=== PATIENT | male | born 1940 | race Caucasian/White ===

== ENCOUNTER 2017-12-01 18:01 | Inpatient (IN) | payer OTHER ==
[2017-12-01 18:30] LABS: ADD MAN DIFF? NO
[2017-12-01 18:36] LABS: WHITE BLOOD COUNT 10.5 10^3/ul (4.8-10.8)
[2017-12-01 18:36] LABS: BASOPHILS % 0.4 % (0.0-2.0); EOSINOPHILS # 0.1 10^3/ul (0.0-0.5); EOSINOPHILS % 0.9 % (0.0-7.0); HEMATOCRIT 39.2 % (42.0-52.0); HEMOGLOBIN 13.1 g/dl (14.0-18.0); LYMPHOCYTES % 19.2 % (15.0-51.0); MEAN CORPUSCULAR HEMOGLOBIN 30.8 pg (29.0-33.0); MEAN CORPUSCULAR HGB CONC 33.4 g/dl (32.0-37.0); MEAN PLATELET VOLUME 8.9 fl (7.4-10.4); MONOCYTE # 0.8 10^3/ul (0.3-0.9); MONOCYTES % 7.3 % (0.0-11.0); NEUTROPHIL # 7.6 10^3/ul (1.6-7.5); NEUTROPHILS % 71.8 % (39.0-77.0); PLATELET COUNT 288 10^3/UL (140-415); RED BLOOD COUNT 4.26 10^6/ul (4.70-6.10)
[2017-12-01 18:54] LABS: ANION GAP 13 (8-16); BLOOD UREA NITROGEN 14 mg/dl (7-20); CALCIUM 9.5 mg/dl (8.4-10.2); CARBON DIOXIDE 26 mmol/L (21-31); CHLORIDE 104 mmol/L (97-110); CHOL/HDL RATIO 4.8 RATIO; CHOLESTEROL 195 mg/dl (100-200); CREATINE KINASE 41 IU/L (23-200); CREATININE 0.75 mg/dl (0.61-1.24); GLUCOSE 109 mg/dl (70-220); HDL CHOLESTEROL 40 mg/dl (31-75); LDL CHOLESTEROL,CALCULATED 127 mg/dl; SODIUM 139 mmol/L (135-144); TRIGLYCERIDES 140 mg/dl (0-149)
[2017-12-01] MEDS: IOHEXOL 300MG/ML 150 ML BTL (18:54)
[2017-12-01] MEDS: SOD CHLORIDE 0.9% 100 ML (18:54)
[2017-12-01 18:56] LABS: ETHANOL < 10.0 mg/dl; INR 0.89; PROTIME 12.1 Sec (11.9-14.9); PT RATIO 0.9
[2017-12-01] MEDS: SOD CHLORIDE 0.9% 500 ML IV (18:56)
[2017-12-01 18:59] LABS: HEMOGLOBIN A1C 5.5 % (0-5.9)
[2017-12-01 19:05] LABS: CK-MB 1.22 ng/ml (0.0-2.4); TROPONIN-I < 0.012 ng/ml (0.000-0.120)
[2017-12-01] MEDS ORDERED: ACETAMINOPHEN 325 MG TAB PO (20:30)
[2017-12-01] MEDS ORDERED: ONDANSETRON 4 MG INJ IV (20:30)
[2017-12-02] MEDS: ASPIRIN (EC) 81 MG TAB PO ×2 (00:59→08:51)
[2017-12-02] MEDS: ENOXAPARIN 60 MG/0.6 ML SYG SC ×2 (01:01→08:51)
[2017-12-02 01:30] LABS: TROPONIN-I < 0.012 ng/ml (0.000-0.120)
[2017-12-02 07:01] LABS: HEMATOCRIT 33.8 % (42.0-52.0); HEMOGLOBIN 11.2 g/dl (14.0-18.0); MEAN CORPUSCULAR HGB CONC 33.1 g/dl (32.0-37.0); MEAN CORPUSCULAR VOLUME 93.6 fl (82.0-101.0); MEAN PLATELET VOLUME 9.4 fl (7.4-10.4); PLATELET COUNT 256 10^3/UL (140-415); POSITIVE DIFF @See below; RED BLOOD COUNT 3.61 10^6/ul (4.70-6.10); RED CELL DISTRIBUTION WIDTH 13.9 % (11.5-14.5)
[2017-12-02 07:01] LABS: WHITE BLOOD COUNT 7.4 10^3/ul (4.8-10.8)
[2017-12-02 07:13] LABS: ADD MAN DIFF? YES
[2017-12-02 07:33] LABS: CHOLESTEROL 145 mg/dl (100-200)
[2017-12-02 07:33] LABS: CHOL/HDL RATIO 4.3 RATIO; HDL CHOLESTEROL 33 mg/dl (31-75); LDL CHOLESTEROL,CALCULATED 95 mg/dl; TRIGLYCERIDES 85 mg/dl (0-149)
[2017-12-02 07:35] LABS: ALANINE AMINOTRANSFERASE 17 IU/L (13-69); ALBUMIN 2.6 g/dl (3.3-4.9); ALBUMIN/GLOBULIN RATIO 0.86; ALKALINE PHOSPHATASE 103 IU/L (42-121); ANION GAP 8 (8-16); ASPARTATE AMINO TRANSFERASE 11 IU/L (15-46); BILIRUBIN,INDIRECT 0.3 mg/dl (0-1.1); BILIRUBIN,TOTAL 0.3 mg/dl (0.2-1.3); BLOOD UREA NITROGEN 13 mg/dl (7-20); CALCIUM 8.7 mg/dl (8.4-10.2); CARBON DIOXIDE 28 mmol/L (21-31); CHLORIDE 106 mmol/L (97-110); CREATININE 0.59 mg/dl (0.61-1.24); GLUCOSE 70 mg/dl (70-220); POTASSIUM 3.6 mmol/L (3.5-5.1); SODIUM 138 mmol/L (135-144); TOTAL PROTEIN 5.6 g/dl (6.1-8.1)
[2017-12-02 07:52] LABS: TROPONIN-I < 0.012 ng/ml (0.000-0.120)
[2017-12-02] MEDS ORDERED: PENDING SANTYL ORDER FOR WOUND CARE XX (08:00)
[2017-12-02 08:19] LABS: EOSINOPHILS % (M) 1 % (0-7); LYMPHOCYTES #M 2.3 10^3/ul (0.8-2.9); LYMPHOCYTES % (M) 32 % (15-51); MICROCYTOSIS 1+ (0-0); MONOCYTE #M 0.3 10^3/ul (0.3-0.9); MONOCYTES % (M) 5 % (0-11); PLATELET ESTIMATE NORMAL; POLYCHROMASIA 1+ (0-0); SEGMENTED NEUTROPHILS (M) % 62 % (39-77); SMUDGE%M 12 % (0-0); SPHEROCYTES 2+ (0-0)
[2017-12-02 08:31] LABS: PREALBUMIN 13.2 mg/dl (17.6-36.0)
[2017-12-02] MEDS ORDERED: ALBUTEROL/IPRATROPIUM (NEB) 3 ML AMP HHN (10:00)
[2017-12-02] MEDS: CLOPIDOGREL 75 MG TAB PO (11:05)
[2017-12-02] MEDS: FINASTERIDE 5 MG TAB PO (11:05)
[2017-12-02] MEDS: FAMOTIDINE 20 MG TAB PO (11:05)
[2017-12-02] MEDS: NICOTINE (21 MG/24 HR) PATCH TRANSDERM (11:06)
[2017-12-02] MEDS: IOHEXOL 100 ML (12:50)
[2017-12-02] MEDS: SOD CHLORIDE 0.9% 100 ML (12:50)
[2017-12-02 13:00] LABS: TROPONIN-I < 0.012 ng/ml (0.000-0.120)
[2017-12-02] MEDS: TAMSULOSIN (SR) 0.4 MG CAP PO (21:10)
[2017-12-02] MEDS: ATORVASTATIN 20 MG TAB PO (21:10)
[2017-12-03 02:00] LABS: AMPHETAMINE/METHAMPHETAMINE Negative (NEGATIVE); BARBITURATES Negative (NEGATIVE); BENZODIAZEPINES Negative (NEGATIVE); CANNABINOIDS Negative (NEGATIVE); COCAINE Negative (NEGATIVE); OPIATES Negative (NEGATIVE)
[2017-12-03 02:22] LABS: ADD UMIC YES; UR AMORPHOUS CRYSTAL FEW /HPF (NONE SEEN); UR ASCORBIC ACID NEGATIVE (NEGATIVE); UR BACTERIA FEW /HPF (NONE SEEN); UR BILIRUBIN (Dip) 2+ mg/dL (NEGATIVE); UR BLOOD (Dip) NEGATIVE (NEGATIVE); UR CLARITY CLOUDY (CLEAR); UR COLOR AMBER (YELLOW); UR GLUCOSE (Dip) NEGATIVE (NEGATIVE); UR KETONES (Dip) NEGATIVE (NEGATIVE); UR LEUKOCYTE ESTERASE (Dip) 3+ Leu/ul (NEGATIVE); UR MUCUS FEW /HPF (NONE SEEN); UR NITRITE (Dip) POSITIVE (NEGATIVE); UR RBC 8 /HPF (0-5); UR SPECIFIC GRAVITY (Dip) 1.058 (1.003-1.030); UR TOTAL PROTEIN (Dip) 2+ mg/dl (NEGATIVE); UR UROBILINOGEN (Dip) NEGATIVE (NEGATIVE); UR WBC 41 /HPF (0-5)
[2017-12-03] MEDS: FAMOTIDINE 20 MG TAB PO (08:02)
[2017-12-03] MEDS: CLOPIDOGREL 75 MG TAB PO (08:02)
[2017-12-03] MEDS: FINASTERIDE 5 MG TAB PO (08:02)
[2017-12-03] MEDS: ASPIRIN (EC) 81 MG TAB PO (08:02)
[2017-12-03] MEDS: NICOTINE (21 MG/24 HR) PATCH TRANSDERM (08:03)
== END 2017-12-03 16:40 | disposition home health service (06) | DRG 68 ==
LOC: E/R 18:01 → TEL 20:06
DX: I65.21 Occlusion and stenosis of right carotid artery (principal); I69.354 Hemiplegia and hemiparesis following cerebral infarction affecting left non-dominant side; I71.2 Thoracic aortic aneurysm, without rupture; J43.2 Centrilobular emphysema; I70.292 Other atherosclerosis of native arteries of extremities, left leg; N40.0 Benign prostatic hyperplasia without lower urinary tract symptoms; F17.210 Nicotine dependence, cigarettes, uncomplicated; R55 Syncope and collapse; Z79.02 Long term (current) use of antithrombotics/antiplatelets; Z79.82 Long term (current) use of aspirin; Z91.81 History of falling
CPT/HCPCS: 36415; 70450; 70496; 70498; 70551; 71045; 71275; 80048; 80053; 80061; 80307; 81001; 82550; 82553; 82962; 83036; 84134; 84484; 85025; 85610; 85730; 93005; 93306; 96360; 97162; 97167; 99285-25

== ENCOUNTER 2018-04-19 16:46 | Inpatient (IN) | payer OTHER ==
[2018-04-19] MEDS: morphine 4 MG/ML VIAL IV (20:39)
[2018-04-19 20:55] LABS: ADD MAN DIFF? NO
[2018-04-19] MEDS ORDERED: ACETAMINOPHEN 325 MG TAB PO ×2 (21:00→21:30)
[2018-04-19] MEDS ORDERED: ONDANSETRON 4 MG INJ IV (21:00)
[2018-04-19 21:01] LABS: BASOPHILS % 0.2 % (0.0-2.0); EOSINOPHILS # 0.1 10^3/ul (0.0-0.5); EOSINOPHILS % 0.5 % (0.0-7.0); HEMATOCRIT 33.9 % (42.0-52.0); LYMPHOCYTES # 1.3 10^3/ul (0.8-2.9); LYMPHOCYTES % 11.3 % (15.0-51.0); MEAN CORPUSCULAR HEMOGLOBIN 27.2 pg (29.0-33.0); MEAN CORPUSCULAR HGB CONC 32.4 g/dl (32.0-37.0); MEAN CORPUSCULAR VOLUME 83.9 fl (82.0-101.0); MEAN PLATELET VOLUME 9.4 fl (7.4-10.4); MONOCYTE # 0.7 10^3/ul (0.3-0.9); MONOCYTES % 6.2 % (0.0-11.0); NEUTROPHILS % 81.3 % (39.0-77.0); PLATELET COUNT 318 10^3/UL (140-415); RED BLOOD COUNT 4.04 10^6/ul (4.70-6.10); RED CELL DISTRIBUTION WIDTH 15.4 % (11.5-14.5)
[2018-04-19 21:21] LABS: ALBUMIN 3.8 g/dl (3.3-4.9); ALKALINE PHOSPHATASE 116 IU/L (42-121); ANION GAP 14 (5-13); ASPARTATE AMINO TRANSFERASE 12 IU/L (15-46); BILIRUBIN,INDIRECT 0.3 mg/dl (0-1.1); BILIRUBIN,TOTAL 0.3 mg/dl (0.2-1.3); BLOOD UREA NITROGEN 37 mg/dl (7-20); CALCIUM 9.8 mg/dl (8.4-10.2); CARBON DIOXIDE 26 mmol/L (21-31); CHLORIDE 97 mmol/L (97-110); CREATININE 1.27 mg/dl (0.61-1.24); GLUCOSE 177 mg/dl (70-220); POTASSIUM 4.3 mmol/L (3.5-5.1); SODIUM 137 mmol/L (135-144)
[2018-04-19 21:23] LABS: ALANINE AMINOTRANSFERASE < 6 IU/L (13-69)
[2018-04-19 21:26] LABS: ALBUMIN/GLOBULIN RATIO 1.11; TOTAL PROTEIN 7.2 g/dl (6.1-8.1)
[2018-04-19] MEDS ORDERED: ONDANSETRON 4 MG TAB PO (21:30)
[2018-04-19] MEDS ORDERED: NACL 0.9% 3 ML SYG IV (21:30)
[2018-04-19] MEDS ORDERED: DOCUSATE SODIUM 100 MG CAP PO (21:30)
[2018-04-19] MEDS ORDERED: KETOROLAC 15 MG INJ IV (21:30)
[2018-04-19] MEDS ORDERED: MAGNESIUM HYDROXIDE 30ML CUP PO (21:30)
[2018-04-19] MEDS: FAMOTIDINE 20 MG TAB PO (21:30)
[2018-04-20 05:19] LABS: ADD MAN DIFF? NO
[2018-04-20 05:24] LABS: WHITE BLOOD COUNT 8.6 10^3/ul (4.8-10.8)
[2018-04-20 05:24] LABS: BASOPHILS % 0.4 % (0.0-2.0); EOSINOPHILS # 0.1 10^3/ul (0.0-0.5); EOSINOPHILS % 1.6 % (0.0-7.0); HEMATOCRIT 30.4 % (42.0-52.0); HEMOGLOBIN 9.9 g/dl (14.0-18.0); LYMPHOCYTES # 1.7 10^3/ul (0.8-2.9); LYMPHOCYTES % 19.3 % (15.0-51.0); MEAN CORPUSCULAR HEMOGLOBIN 27.3 pg (29.0-33.0); MEAN CORPUSCULAR HGB CONC 32.6 g/dl (32.0-37.0); MEAN PLATELET VOLUME 9.5 fl (7.4-10.4); MONOCYTE # 0.9 10^3/ul (0.3-0.9); MONOCYTES % 10.5 % (0.0-11.0); NEUTROPHIL # 5.8 10^3/ul (1.6-7.5); NEUTROPHILS % 67.8 % (39.0-77.0); PLATELET COUNT 275 10^3/UL (140-415); RED BLOOD COUNT 3.62 10^6/ul (4.70-6.10); RED CELL DISTRIBUTION WIDTH 15.3 % (11.5-14.5)
[2018-04-20 05:41] LABS: INR 0.98; PROTIME 13.1 Sec (11.9-14.9)
[2018-04-20 05:42] LABS: PARTIAL THROMBOPLASTIN TIME 35.1 Sec (23.0-35.0)
[2018-04-20 05:45] LABS: HEMOGLOBIN A1C 5.6 % (0-5.9)
[2018-04-20 05:53] LABS: ALANINE AMINOTRANSFERASE 8 IU/L (13-69); ALBUMIN 3.3 g/dl (3.3-4.9); ALBUMIN/GLOBULIN RATIO 1.03; ALKALINE PHOSPHATASE 112 IU/L (42-121); ANION GAP 11 (5-13); ASPARTATE AMINO TRANSFERASE 12 IU/L (15-46); BILIRUBIN,INDIRECT 0.1 mg/dl (0-1.1); BILIRUBIN,TOTAL 0.1 mg/dl (0.2-1.3); BLOOD UREA NITROGEN 33 mg/dl (7-20); CALCIUM 9.2 mg/dl (8.4-10.2); CARBON DIOXIDE 25 mmol/L (21-31); CHLORIDE 101 mmol/L (97-110); CREATININE 1.15 mg/dl (0.61-1.24); GLUCOSE 106 mg/dl (70-220); POTASSIUM 3.8 mmol/L (3.5-5.1); SODIUM 137 mmol/L (135-144); TOTAL PROTEIN 6.5 g/dl (6.1-8.1)
[2018-04-20 05:57] LABS: TROPONIN-I 0.018 ng/ml (0.000-0.120)
[2018-04-20 06:09] LABS: FREE THYROXINE INDEX (Calc) 2.53 ug/ml (0.65-3.89); T3 UPTAKE 42.2 % (23.5-40.5)
[2018-04-20] MEDS: FINASTERIDE 5 MG TAB PO (09:00)
[2018-04-20] MEDS: FAMOTIDINE 20 MG TAB PO (09:00)
[2018-04-20] MEDS: CLOPIDOGREL 75 MG TAB PO (09:00)
[2018-04-20] MEDS: TAMSULOSIN (SR) 0.4 MG CAP PO (20:09)
[2018-04-20] MEDS: ATORVASTATIN 20 MG TAB PO (20:09)
[2018-04-21] MEDS: FINASTERIDE 5 MG TAB PO (11:23)
[2018-04-21] MEDS: CLOPIDOGREL 75 MG TAB PO (11:23)
[2018-04-21] MEDS: FAMOTIDINE 20 MG TAB PO (11:24)
[2018-04-21] MEDS: BALSAM PERU/CASTOR OIL 60 GM TUBE TOP ×2 (16:07→20:18)
[2018-04-21] MEDS: TAMSULOSIN (SR) 0.4 MG CAP PO (20:14)
[2018-04-21] MEDS: ATORVASTATIN 20 MG TAB PO (20:14)
== END 2018-04-21 21:04 | DRG 607 ==
LOC: E/R 16:46 → 2NE 20:51
DX: R22.2 Localized swelling, mass and lump, trunk (principal); I69.954 Hemiplegia and hemiparesis following unspecified cerebrovascular disease affecting left non-dominant side; N40.0 Benign prostatic hyperplasia without lower urinary tract symptoms
CPT/HCPCS: 74176; 80053; 83036; 84436; 84479; 84484; 85025; 85610; 85730; 96374; 97161; 99285-25